=== PATIENT | female | born 1970 | race Two or more races ===

== ENCOUNTER 2023-12-06 10:29 | Inpatient (IN) | payer MEDICAID ==
[~2023-12-06] VITALS: Ht 162.6 cm; Wt 61.1 kg
[~2023-12-06 10:29] MED LIST: EPIN0.1I11 IJ; PRED20TA2 PO
[2023-12-06 11:12] LABS: Urine Bacteria None Seen /hpf (None Seen)
[2023-12-06 11:30] LABS: Urine Blood Negative /uL (Negative); Urine Clarity Clear (Clear); Urine Color Light-Yellow (Yellow); Urine Protein, UAD Negative (Negative); Urine Specific Gravity 1.012 (1.001-1.035); Urine Urobilinogen Normal (Negative); Urine WBC 1 /hpf (0 - 5); Urine pH 6.5 (5.0-9.0)
[2023-12-06 11:49] LABS: Basophils # (auto) 0 10 ^3/uL (0-0.2); Basophils % (auto) 0.3 % (0.0-2.0); Eosinophils # (auto) 0.1 10 ^3/uL (0-0.8); Eosinophils % (auto) 1.1 % (0.0-7.0); Hematocrit 43.8 % (36.0-46.0); Hemoglobin 14.6 g/dL (12.2-16.2); Lymphocytes # (auto) 1.4 10 ^3/uL (0.4-5.4); Lymphocytes % (auto) 12.4 % (10.0-50.0); Mean Corpuscular Hemoglobin 28.8 pg (28.0-32.0); Mean Corpuscular Hgb Conc. 33.3 g/dL (32.0-36.0); Mean Corpuscular Volume 86.5 fL (80.0-100.0); Monocytes # (auto) 1.1 10 ^3/uL (0-1.3); Monocytes % (auto) 9.8 % (0.0-12.0); Neutrophils # (auto) 8.9 10 ^3/uL (1.6-8.6); Neutrophils % (auto) 76.4 % (37.0-80.0); Platelet Count (auto) 288 10^3/uL (140-450); Red Blood Cells 5.06 10^6/uL (4.0-5.20); Red Cell Distribution Width 15.7 % (11.8-14.3); White Blood Cell 11.6 10^3/uL (4.4-10.8)
[2023-12-06 12:01] VITALS: PULSE 82; RESP 20; O2SAT 99
[2023-12-06 12:07] LABS: Alanine Aminotransferase 29 U/L (7-40); Albumin 4.9 g/dL (3.2-4.8); Alkaline Phosphatase 55 U/L (46-116); Anion Gap 6 (5-15); Aspartate Aminotransferase 13 U/L (13-40); Bilirubin, Total 1.7 mg/dL (0.2-1.0); Blood Urea Nitrogen 6 mg/dL (9-23); Calcium 9.5 mg/dL (8.7-10.4); Carbon Dioxide 25 mmol/L (20-31); Chloride 107 mmol/L (98-107); Glucose 98 mg/dL (74-106); Lipase 36 U/L (12-53); Potassium 3.8 mmol/L (3.5-5.1); Sodium 138 mmol/L (136-145)
[2023-12-06 12:08] LABS: Total Protein 8.1 g/dL (5.7-8.2)
[2023-12-06] MEDS ORDERED: levoFLOXacin 750MG 150 ML IV ONE (12:30)
[2023-12-06] MEDS: metroNIDAZOLE 500MG/100ML 100 ML IV ONE (12:48)
[2023-12-06] MEDS: SODIUM CHLORIDE 0.9% 1,000 ML IV ONE (12:48)
[2023-12-06] MEDS: PANTOPRAZOLE 40 MG/10 ML VIAL INJ IV ONE (12:48)
[2023-12-06] MEDS ORDERED: ONDANSETRON HCL 4 MG/2 ML VIAL IV PRN (13:30)
[2023-12-06] MEDS ORDERED: DOCUSATE SOD 100 MG CAP PO PRN (13:30)
[2023-12-06] MEDS ORDERED: MORPHINE SULFATE INJ 2 MG/ml SYRG IV PRN (13:30)
[2023-12-06] MEDS: HYDROcodone-ACET 5/325MG TAB PO PRN (13:41)
[2023-12-06] MEDS: levoFLOXacin 750MG 150 ML IV ONE (13:42)
[2023-12-06] MEDS: D5W/SOD CHLO 0.9% 1,000 ML IV ONE (14:04)
[2023-12-06 21:43] VITALS: BP 132/84; PULSE 80; RESP 18; TEMP 98.1; O2SAT 98
[2023-12-06] MEDS: metroNIDAZOLE 500MG/100ML 100 ML IV SCH (22:27)
[2023-12-06] MEDS: ACETAMINOPHEN 500 MG TAB PO PRN (22:53)
[2023-12-07 05:00] VITALS: BP 130/70; PULSE 99; RESP 17; TEMP 100.2; O2SAT 98
[2023-12-07] MEDS: PANTOPRAZOLE 40 MG TAB PO SCH (06:45)
[2023-12-07 07:13] LABS: Chloride 110 mmol/L (98-107); Potassium 3.7 mmol/L (3.5-5.1); Sodium 140 mmol/L (136-145)
[2023-12-07 07:14] LABS: Anion Gap 10 (5-15); Calcium 9.3 mg/dL (8.7-10.4); Carbon Dioxide 20 mmol/L (20-31)
[2023-12-07 07:18] LABS: Basophils # (auto) 0 10 ^3/uL (0-0.2); Basophils % (auto) 0.3 % (0.0-2.0); Eosinophils # (auto) 0.1 10 ^3/uL (0-0.8); Hematocrit 42.7 % (36.0-46.0); Hemoglobin 14.2 g/dL (12.2-16.2); Lymphocytes # (auto) 1.4 10 ^3/uL (0.4-5.4); Lymphocytes % (auto) 9.7 % (10.0-50.0); Mean Corpuscular Hemoglobin 28.6 pg (28.0-32.0); Mean Corpuscular Hgb Conc. 33.3 g/dL (32.0-36.0); Mean Corpuscular Volume 85.9 fL (80.0-100.0); Monocytes # (auto) 1.4 10 ^3/uL (0-1.3); Monocytes % (auto) 9.9 % (0.0-12.0); Neutrophils % (auto) 79.1 % (37.0-80.0); Platelet Count (auto) 270 10^3/uL (140-450); Red Blood Cells 4.97 10^6/uL (4.0-5.20); Red Cell Distribution Width 15.5 % (11.8-14.3); White Blood Cell 13.9 10^3/uL (4.4-10.8)
[2023-12-07 07:19] LABS: BUN/Creatinine Ratio 7.6 (10.0-20.0); Blood Urea Nitrogen 5 mg/dL (9-23); Glucose 102 mg/dL (74-106)
[2023-12-07 08:30] VITALS: PULSE 97; RESP 17; O2SAT 98
[2023-12-07 09:23] VITALS: BP 113/71; PULSE 97; RESP 17; TEMP 99.6; O2SAT 98
[2023-12-07] MEDS ORDERED: levoFLOXacin 500MG 100 ML IV SCH (10:00)
[2023-12-07 13:00] VITALS: BP 116/74; PULSE 88; RESP 17; TEMP 98.7; O2SAT 97
[2023-12-07] MEDS: levoFLOXacin 500 MG TAB PO SCH (16:26)
[2023-12-07 17:23] VITALS: BP 125/78; PULSE 95; RESP 20; TEMP 98.2; O2SAT 97
[2023-12-07 21:00] VITALS: BP 118/75; PULSE 77; RESP 20; TEMP 97.4; O2SAT 97
[2023-12-08] VITALS (7 sets, daily range): BP systolic 103–144; BP diastolic 48–98; PULSE 66–90; RESP 16–20; TEMP 36.6; O2SAT 96–100
[2023-12-08 05:10] LABS: Basophils # (auto) 0 10 ^3/uL (0-0.2); Basophils % (auto) 0.3 % (0.0-2.0); Eosinophils # (auto) 0.3 10 ^3/uL (0-0.8); Hematocrit 37.4 % (36.0-46.0); Hemoglobin 12.5 g/dL (12.2-16.2); Lymphocytes # (auto) 1.4 10 ^3/uL (0.4-5.4); Lymphocytes % (auto) 15.4 % (10.0-50.0); Mean Corpuscular Hemoglobin 28.8 pg (28.0-32.0); Mean Corpuscular Hgb Conc. 33.4 g/dL (32.0-36.0); Mean Corpuscular Volume 86.3 fL (80.0-100.0); Monocytes # (auto) 0.9 10 ^3/uL (0-1.3); Monocytes % (auto) 9.9 % (0.0-12.0); Neutrophils # (auto) 6.6 10 ^3/uL (1.6-8.6); Neutrophils % (auto) 71.4 % (37.0-80.0); Platelet Count (auto) 265 10^3/uL (140-450); Red Blood Cells 4.33 10^6/uL (4.0-5.20); Red Cell Distribution Width 15.9 % (11.8-14.3); White Blood Cell 9.3 10^3/uL (4.4-10.8)
[2023-12-08 05:27] LABS: Anion Gap 8 (5-15); Carbon Dioxide 23 mmol/L (20-31); Chloride 107 mmol/L (98-107); Potassium 3.7 mmol/L (3.5-5.1); Sodium 138 mmol/L (136-145)
[2023-12-08 05:33] LABS: Glucose 104 mg/dL (74-106)
[2023-12-08 06:09] LABS: BUN/Creatinine Ratio 8.8 (10.0-20.0); Blood Urea Nitrogen < 5 mg/dL (9-23)
[2023-12-08] MEDS ORDERED: LEVO500T91 PO (15:01)
[2023-12-08] MEDS ORDERED: METR-344 PO (15:01)
== END 2023-12-08 18:10 | disposition home or self-care (01) | DRG 720 ==
LOC: ER 10:29 → OVERFLOW 13:19 → CENTRAL 21:35
PROVIDERS: ADMIT Nurse Practitioner Acute Care; ATTEND Nurse Practitioner Acute Care
DX: A41.9 Sepsis, unspecified organism (principal); G43.909 Migraine, unspecified, not intractable, without status migrainosus; K52.9 Noninfective gastroenteritis and colitis, unspecified; K57.32 Diverticulitis of large intestine without perforation or abscess without bleeding; Z88.0 Allergy status to penicillin
CPT/HCPCS: 36415; 74176; 80048; 80053; 81001; 83690; 84443; 85025; 87040; 96365; 96375; G0378; J1956; J2470; J3490

== ENCOUNTER 2024-07-12 17:53 | Emergency (ER) | payer MEDICAID ==
[~2024-07-12] VITALS: Ht 157.5 cm; Wt 58.0 kg
[~2024-07-12 17:53] MED LIST changes: +LEVO500T91 PO; +METR-344 PO
[2024-07-12 18:47] LABS: Basophils # (auto) 0.1 10 ^3/uL (0-0.2); Basophils % (auto) 0.9 % (0.0-2.0); Eosinophils # (auto) 0.4 10 ^3/uL (0-0.8); Hematocrit 38.5 % (36.0-46.0); Hemoglobin 12.9 g/dL (12.2-16.2); Lymphocytes # (auto) 2.5 10 ^3/uL (0.4-5.4); Lymphocytes % (auto) 31.1 % (10.0-50.0); Mean Corpuscular Hemoglobin 28.6 pg (28.0-32.0); Mean Corpuscular Hgb Conc. 33.4 g/dL (32.0-36.0); Mean Corpuscular Volume 85.7 fL (80.0-100.0); Monocytes # (auto) 0.6 10 ^3/uL (0-1.3); Monocytes % (auto) 8.2 % (0.0-12.0); Neutrophils # (auto) 4.3 10 ^3/uL (1.6-8.6); Neutrophils % (auto) 54.8 % (37.0-80.0); Nucleated Red Blood Cells % 0.1 %; Platelet Count (auto) 344 10^3/uL (140-450); Red Cell Distribution Width 15.6 % (11.8-14.3); White Blood Cell 7.9 10^3/uL (4.4-10.8)
[2024-07-12 18:56] LABS: Potassium 3.9 mmol/L (3.5-5.1); Sodium 141 mmol/L (136-145)
[2024-07-12 18:57] LABS: Anion Gap 7 (5-15); Calcium 10.1 mg/dL (8.7-10.4); Carbon Dioxide 24 mmol/L (20-31)
[2024-07-12 19:02] LABS: BUN/Creatinine Ratio 22.1 (10.0-20.0); Blood Urea Nitrogen 17 mg/dL (9-23)
[2024-07-12 19:03] LABS: Chloride 110 mmol/L (98-107); Glucose 113 mg/dL (74-106)
--- NOTE | 2024-07-12 19:20 | DVH ---
CLINICAL INDICATION: right shoulder pain s/p surgery TECHNIQUE: 2 radiographic views of the right shoulder were obtained. Comparison: None FINDINGS/IMPRESSION: There is no evidence of acute fracture or dislocation. The visualized joint space is well maintained. The alignment is anatomical. There is no radiopaque foreign body.
--- NOTE | 2024-07-12 19:27 | ED.PDOC ---
Musculoskeletal HPI Comments 54y F who presents to the ED for chief complaint of extremity pain. Pt states she has R shoulder surgery 2x weeks prior at [facility]. Pt states she has been taking Ibuprofen and Tylenol that has been prescribed to her and has had a sudden onset of severe pain today.Pt now in the ED, rates her pain 10/10, with no noted exacerbating or relieving factors. Pt otherwise denies any other symptoms at this time. Chief Complaint: Upper Extremity Time Seen by MD: 19:24 Primary Care Provider: Dr. Hussein Reviewed Notes: Medications, Allergies Allergies: Coded Allergies: Amoxicillin (Verified Allergy, Unknown, 12/06/23) Uncoded Allergies: ajovy (Allergy, Severe, 12/06/23) rash and SOB Home Meds Active Scripts Metronidazole (Flagyl) 500 Mg Tab, 1 TAB PO TID for 5 Days, #15 TAB Prov:ANDRES WOODALL NP 12/08/23 Levofloxacin Hemihydrate (LEVAQUIN 500 MG) 500 Mg Tab, 1 TAB PO DAILY for 5 Days, #5 TAB Prov:ANDRES WOODALL NP 12/08/23 Epinephrine (Anaphylaxis) (Auvi-Q) 0.1 Mg/0.1 Ml Inj, 0.1 MG IJ O PRN for 1 Day, #1 INJ Prov:PETEY SOLANO MD 11/13/23 Prednisone (Prednisone) 20 Mg Tab, 40 MG PO DAILY for 5 Days, #10 MG Prov:PETEY SOLANO MD 11/13/23 Information Source: Patient Mode of Arrival: Ambulatory Past Medical History PAST MEDICAL HISTORY: Denies Surgical History: Tubal Ligation Surgical History (Other): R shoulder surgery [employer] History: Other Family History Family History: Reviewed,noncontributory to illness Social History Smoker: Non-Smoker Alcohol: Denies ETOH Use Drugs: Denies Drug Use Lives In: Home Constitutional: denies: chills, diaphoresis, fatigue, fever, malaise, sweats, weakness, others EENTM: denies: blurred vision, double vision, ear bleeding, ear discharge, ear drainage, ear pain, ear ringing, eye pain, eye redness, hearing loss, mouth pain, mouth swelling, nasal discharge, nose bleeding, nose congestion, nose pain, photophobia, tearing, throat pain, throat swelling, voice changes, others Respiratory: denies: cough, hemoptysis, orthopnea, SOB at rest, shortness of breath, SOB with excertion, stridor, wheezing, others Cardiovascular: denies: chest pain, dizzy spells, diaphoresis, Dyspnea on exertion, edema, irregular heart beat, left arm pain, lightheadedness, palpitations, PND, syncope, others Gastrointestinal: denies: abdomen distended, abdominal pain, blood streaked bowels, constipated, diarrhea, dysphagia, difficulty swallowing, hematemesis, melena, nausea, poor appetite, poor fluid intake, rectal bleeding, rectal pain, vomiting, others Genitourinary: denies: abnormal vagina bleeding, burning, dyspareunia, dysuria, flank pain, frequency, hematuria, incontinence, pain, , vagina discharge, urgency, others Neurological: denies: dizziness, fainting, headache, left sided numbness, left sided weakness, numbness, paresthesia, pre-existing deficit, right sided numbness, right sided weakness, seizure, speech problems, tingling, tremors, weakness, others Musculoskeletal: reports: joint pain (R shoulder); denies: back pain, gout, joint swelling, muscle pain, muscle stiffness, neck pain, others Integumetry: denies: bruises, change in color, change in hair/nails, dryness, laceration, lesions, lumps, rash, wounds, others Allergic/Immunocompromised: denies: Difficulty Healing, Frequent Infections, Hives, Itching, others Hematologic/Lymphatic: denies: anemia, blood clots, easy bleeding, easy bruising, swollen glands, others Endocrine: denies: excessive hunger, excessive sweating, excessive thirst, excessive urination, flushing, intolerance to cold, intolerance to heat, unexplained weight gain, unexplained weight loss, others Psychiatric: denies: anxiety, bipolar disorder, depression, hopeless, panic disorder, schizophrenia, sleepless, suicidal, others All Other Systems: Reviewed and Negative Physical Exam General Appearance: Mild Distress HEENT: Pharynx Normal Neck: Normal Inspection Respiratory: No Respiratory Distress Cardiovascular: No Edema Breast Exam: Deferred Gastrointestinal: Non Tender Genitalia: Deferred Pelvic: Deferred Rectal: Deferred Extremities: Other (right shoulder and right upper arm tender to palpation with surgical dressings and splint in place) Neurologic: NOT DONE Cerebellar Function: NOT DONE Reflexes: NOT DONE Skin: Normal Color Lymphatic: NOT DONE Was a procedure done? Was a procedure done?: No Differential Diagnosis EXT Differential Diagnosis: Sprain, Dislocation, Contusion, Strain, Rheumatoid Other Differential Diagnosis musculoskeletal pain,l R shoulder strain, X-Ray, Labs, Meds, VS Vital Signs Date Time Temp Pulse Resp B/P (MAP) Pulse Ox O2 Delivery O2 Flow Rate FiO2 07/12/24 20:26 78 21 100 Room Air 07/12/24 20:26 98.7 78 21 140/60 (86) 100 98.7 07/12/24 18:20 98.2 70 16 106/72 (83) 98 98.2 Lab Test 07/12/24 18:29 Range/Units White Blood Count 7.9 4.4-10.8 10^3/uL Red Blood Count 4.50 4.0-5.20 10^6/uL Hemoglobin 12.9 12.2-16.2 g/dL Hematocrit 38.5 36.0-46.0 % Mean Corpuscular Volume 85.7 80.0-100.0 fL Mean Corpuscular Hemoglobin 28.6 28.0-32.0 pg Mean Corpuscular Hemoglobin Concent 33.4 32.0-36.0 g/dL Red Cell Distribution Width 15.6 H 11.8-14.3 % Platelet Count 344 140-450 10^3/uL Mean Platelet Volume 8.0 6.9-10.8 fL Neutrophils (%) (Auto) 54.8 37.0-80.0 % Lymphocytes (%) (Auto) 31.1 10.0-50.0 % Monocytes (%) (Auto) 8.2 0.0-12.0 % Eosinophils (%) (Auto) 5.0 0.0-7.0 % Basophils (%) (Auto) 0.9 0.0-2.0 % Neutrophils # (Auto) 4.3 1.6-8.6 10 ^3/uL Lymphocytes # (Auto) 2.5 0.4-5.4 10 ^3/uL Monocytes # (Auto) 0.6 0-1.3 10 ^3/uL Eosinophils # (Auto) 0.4 0-0.8 10 ^3/uL Basophils # (Auto) 0.1 0-0.2 10 ^3/uL Nucleated Red Blood Cells 0.1 % Sodium Level 141 136-145 mmol/L Potassium Level 3.9 3.5-5.1 mmol/L Chloride Level 110 H 98-107 mmol/L Carbon Dioxide Level 24 20-31 mmol/L Anion Gap 7 5-15 Blood Urea Nitrogen 17 9-23 mg/dL Creatinine 0.77 0.550-1.02 mg/dL Glomerular Filtration Rate Calc 90 >90 mL/min BUN/Creatinine Ratio 22.1 H 10.0-20.0 Serum Glucose 113 H 74-106 mg/dL Calcium Level 10.1 8.7-10.4 mg/dL Current Medications Medications (Trade) Dose Ordered Sig/Ellen Route Start Time Stop Time Status Last Admin Sodium Chloride 1,000 ml @ 1,000 mls/hr Q1H ONCE IV 07/12/24 18:30 07/12/24 19:29 DC 07/12/24 20:34 Ketorolac Tromethamine (Toradol Injection) 15 mg ONCE ONCE IV 07/12/24 20:30 07/12/24 20:31 DC 07/12/24 20:34 [place] [address] Ph: [phone] DIAGNOSTIC IMAGING Diagnostic Imaging Report : [id number] Signed PATIENT: DAYANA FITCHCCT: [id number] UNIT: [id number] : 1970 LOC: ER ROOM / BED: / AGE / SEX: 54 / F ADM STATUS: REG ER SERVICE 20 ORDERING PHYSICIAN: PETEY SOLANO MD PROCEDURE(s): RSHD2 - R SHOULDER 2+ VIEW XRAY REASON: right shoulder pain s/p surgery ORDER NUMBER(s): [id number], ACCESSION NUMBER(s): [id number] CLINICAL INDICATION: right shoulder pain s/p surgery TECHNIQUE: 2 radiographic views of the right shoulder were obtained. Comparison: None FINDINGS/IMPRESSION: There is no evidence of acute fracture or dislocation. The visualized joint space is well maintained. The alignment is anatomical. There is no radiopaque foreign body. ATED BY: TINY MARTIN MD DICTATED DATE/TIME: 07/12/241916 SIGNED BY: TINY MARTIN MD SIGNED DATE/TIME: 07/12/241916 CC: Time of 1ST Reevaluation: 20:00 Reevaluation 1ST: Unchanged Patient Education/Counseling: Diagnosis, Treatment Family Education/Counseling: No Family Present Departure 1 Departure Time of Disposition: 21:00 (Patient with severe right upper extremity pain. This may be postsurgical in nature. We will admit patient for pain management, orthopedic consultation and further management) Impression: Primary Impression: Right shoulder pain Qualified Codes: M25.511 - Pain in right shoulder Additional Impression: Acute postoperative pain of right shoulder Disposition: ADMITTED INPATIENT Admit to: Med Surg Condition: Serious Critical Care Note Critical Care Time?: No Stability Stability form required: No Heart Score Heart Score: Heart Score Response (Comments) Value History N/A 0 EKG N/A 0 Age N/A 0 Risk Factors N/A 0 Troponin N/A 0 Total 0 I personally scribed for PETEY SOLANO MD ([email or web address]) on 07/12/24 at 19:27. Electronically submitted by Cleopatra Rich ([email or web address]). I personally scribed for EPTEY SOLANO MD ([email or web address]) on 07/12/24 at 19:36. Electronically submitted by Cleopatra Rich ([place] [employer]). I personally scribed for PETEY SOLANO MD ([email or web address]) on 07/12/24 at 19:36. Electronically submitted by Cleopatra Rich ([email or web address]). PETEY SOLANO MD Jul 12, 2024 19:27
[2024-07-12] MEDS: ONDANSETRON HCL 4 MG/2 ML VIAL IV ONE (20:20)
[2024-07-12] MEDS: MORPHINE SULFATE 4 MG/ML SYR/VIAL IV ONE (20:20)
[2024-07-12] MEDS: SODIUM CHLORIDE 0.9% 1,000 ML IV ONE (20:34)
[2024-07-12] MEDS: KETOROLAC TROMETH 30 MG/ML 1ML VIAL IV ONE (20:34)
--- NOTE | 2024-07-12 21:35 | ED.PDOC ---
Departure 1 Departure Time of Disposition: 21:34 (Upon reassessment patient reported that she has an appointment with her surgeon tomorrow morning. We will discharge patient home with orthopedic follow up tomorrow) Impression: Primary Impression: Right shoulder pain Qualified Codes: M25.511 - Pain in right shoulder Additional Impression: Acute postoperative pain of right shoulder Disposition: 01 HOME / SELF CARE / HOMELESS Condition: Fair Additional Instructions: It is important to follow up with your surgeon at your appointment tomorrow. Discharged With: Self PETEY SOLANO MD Jul 12, 2024 21:35
[2024-07-12 21:53] VITALS: BP 126/78; PULSE 74; RESP 18; TEMP 98; O2SAT 98
== END 2024-07-12 21:55 | disposition home or self-care (01) ==
LOC: ER 18:04
DX: M25.511 Pain in right shoulder (principal); G89.18 Other acute postprocedural pain; Z98.51 Tubal ligation status; Z98.890 Other specified postprocedural states; Z88.0 Allergy status to penicillin; Z79.52 Long term (current) use of systemic steroids; Z79.899 Other long term (current) drug therapy
CPT/HCPCS: 36415; 73030; 80048; 85025; 96361; 96374; 99284; J1885; J7030